=== PATIENT | female | born 1950 | race Caucasian/White ===

== ENCOUNTER 2016-12-07 12:57 | Emergency (ER) | payer MEDICARE ==
[~2016-12-07] VITALS: Ht 157.5 cm; Wt 63.0 kg
[~2016-12-07 12:57] MED LIST: CIPROFLOXACN500 MG PO; LISINOPRIL5 MG PO; METOPROL TAR25 MG PO; PRAVASTATIN20 MG PO; PRILOSEC20 MG PO
[2016-12-07] MEDS ORDERED: CIPROFLOXACN500 MG PO (13:47)
[2016-12-07 13:55] LABS: URINE BILIRUBIN - DIPSTICK NEGATIVE (NEGATIVE); URINE BLOOD DIPSTICK LARGE (NEGATIVE); URINE CLARITY SLIGHT CLOUDY; URINE COLOR YELLOW; URINE GLUCOSE - DIPSTICK NEGATIVE (NEGATIVE); URINE KETONE NEGATIVE (NEGATIVE); URINE LEUK ESTERASE MODERATE (NEGATIVE); URINE NITRITE - DIPSTICK NEGATIVE (Negative); URINE PROTEIN - DIPSTICK NEGATIVE (NEG-TRACE); URINE SPECIFIC GRAVITY <=1.005; URINE UROBILINOGEN - DIPSTICK 0.2 E.U./dL (0.2)
[2016-12-07 14:00] LABS: URINE WBC 20-50 WBC/hpf (0-5)
[2016-12-07 14:01] LABS: URINE BACTERIA FEW hpf; URINE RBC 0-2 RBC/hpf (0-5)
[2016-12-07 14:08] VITALS: BP 131/77
== END 2016-12-07 14:08 | disposition home or self-care (01) ==
LOC: ED 12:57
PROVIDERS: Emergency Medicine
DX: N39.0 Urinary tract infection, site not specified (principal); R30.0 Dysuria

== ENCOUNTER 2017-08-27 12:44 | Emergency (ER) | payer MEDICARE ==
[~2017-08-27] VITALS: Ht 157.5 cm; Wt 65.0 kg
[2017-08-27] MEDS ORDERED: AMOXICILLIN500 MG PO (12:57)
[2017-08-27] MEDS ORDERED: ZESTRIL10 M1 PO (13:23)
[2017-08-27] MEDS ORDERED: CATAPRES0.1 MG PO ×2 (13:23→14:04)
[2017-08-27 14:04] VITALS: BP 178/96
== END 2017-08-27 14:13 | disposition home or self-care (01) ==
LOC: ED 12:44
DX: I10 Essential (primary) hypertension (principal); R51 Headache

== ENCOUNTER 2017-09-02 13:33 | Emergency (ER) | payer MEDICARE ==
[~2017-09-02] VITALS: Ht 157.5 cm; Wt 61.2 kg
[~2017-09-02 13:33] MED LIST changes: +AMOXICILLIN500 MG PO; +CATAPRES0.1 MG PO; +ZESTRIL10 M1 PO
[2017-09-02] MEDS ORDERED: KEFLEX500 MG PO (13:53)
[2017-09-02] MEDS ORDERED: LISINOPRIL20 MG PO (14:07)
[2017-09-02 15:31] VITALS: BP 133/78
== END 2017-09-02 15:31 | disposition home or self-care (01) ==
LOC: ED 13:33
DX: I10 Essential (primary) hypertension (principal)